=== PATIENT | male | born 1965 | race Asian ===

== ENCOUNTER 2016-08-20 22:34 | Outpatient (CLI) | payer OTHER | END 2016-08-20 22:39 | disposition short-term general hospital (02) | LOC: AMB 22:34 | DX: T22.012A Burn of unspecified degree of left forearm, initial encounter (principal); T24.002A Burn of unspecified degree of unspecified site of left lower limb, except ankle and foot, initial encounter; X08.8XXA Exposure to other specified smoke, fire and flames, initial encounter; Y92.89 Other specified places as the place of occurrence of the external cause; F10.129 Alcohol abuse with intoxication, unspecified | CPT/HCPCS: A0425; A0427 ==

== ENCOUNTER 2016-08-20 22:45 | Emergency (ER) | payer OTHER ==
[~2016-08-20] VITALS: Ht 170.2 cm; Wt 77.1 kg
[2016-08-20 23:23] LABS: PLATELET COUNT 285 K/uL (142-355)
[2016-08-20 23:26] LABS: POTASSIUM 4.2 mmol/L (3.6-5.2); SODIUM 132 mmol/L (136-145)
[2016-08-21 01:40] VITALS: BP 149/69; TEMP 98.1
== END 2016-08-21 01:42 | disposition short-term general hospital (02) ==
LOC: ED 22:45
PROC: 0T9B70Z Drainage of Bladder with Drainage Device, Via Natural or Artificial Opening (ICD-10-PCS; principal; 2016-08-20)
DX: J70.5 Respiratory conditions due to smoke inhalation (principal); T21.35XA Burn of third degree of buttock, initial encounter; T20.35XA Burn of third degree of scalp [any part], initial encounter; T24.312A Burn of third degree of left thigh, initial encounter; T24.311A Burn of third degree of right thigh, initial encounter; T24.302A Burn of third degree of unspecified site of left lower limb, except ankle and foot, initial encounter; T24.301A Burn of third degree of unspecified site of right lower limb, except ankle and foot, initial encounter; T31.44 Burns involving 40-49% of body surface with 40-49% third degree burns; X00.0XXA Exposure to flames in uncontrolled fire in building or structure, initial encounter; Y92.098 Other place in other non-institutional residence as the place of occurrence of the external cause
CPT/HCPCS: 36600; 51702; 80053; 80307; 81000; 82805; 85027; 87088; 96361; 96374; 96375; 96376; 99285; G0479; J0696; J1940; J2270; J2930

== ENCOUNTER 2017-04-12 11:50 | Emergency (ER) | payer OTHER ==
[~2017-04-12] VITALS: Ht 170.2 cm; Wt 72.6 kg
[2017-04-12 11:55] VITALS: TEMP 100
[2017-04-12 15:00] VITALS: BP 118/92
== END 2017-04-12 15:45 | disposition home or self-care (01) ==
LOC: ED 11:50
DX: S30.0XXA Contusion of lower back and pelvis, initial encounter (principal); S39.012A Strain of muscle, fascia and tendon of lower back, initial encounter; W01.198A Fall on same level from slipping, tripping and stumbling with subsequent striking against other object, initial encounter
CPT/HCPCS: 74022; 81000; 96372; 99283; J2360